=== PATIENT | male | born 1995 | race Caucasian/White ===

== ENCOUNTER 2016-12-30 12:36 | Emergency (ER) | payer OTHER | END 2016-12-30 13:38 | disposition home or self-care (01) | LOC: ER1 12:36 | DX: S01.01XA Laceration without foreign body of scalp, initial encounter (principal); W21.89XA Striking against or struck by other sports equipment, initial encounter; Y93.17 Activity, water skiing and wake boarding | CPT/HCPCS: 12001; 90471; 90714; 99283 ==